=== PATIENT | female | born 1985 | race American Indian/Alaskan Native ===

== ENCOUNTER 2016-07-06 22:41 | Emergency (ER) | payer OTHER ==
[2016-07-06] MEDS ORDERED: Aspirin 81 MG Tab.Chew PO ONE (23:28)
[2016-07-07 00:08] LABS: CHLORIDE,CL 100 mmol/L (101-111); SODIUM,NA 135 mmol/L (135-145)
[2016-07-07] MEDS ORDERED: Ketorolac 30 MG/ML SDV IM ONE (00:33)
[2016-07-07] MEDS ORDERED: Cyclobenzaprine 10 MG Tab PO ONE (00:33)
--- NOTE | 2016-07-07 01:30 | EDM.PDOC ---
ED HISTORY OF PRESENT ILLNESS - General Chief Complaint: Chest Pain Stated Complaint: [id number] CHEST INTO LEFT ARM Time Seen by Provider: 07/06/16 22:55 Source of Information: Reports: Patient History Limitations: Reports: No limitations - History of Present Illness INITIAL COMMENTS - FREE TEXT/NARRATIVE: c/o chest pain, describes as ache, sharp has been present constant x 2 days, seemed to get worse this cece, was out at casino and got nauseated Denied injury No breathing difficutly, - Related Data Allergies/ADRs: Allergies Allergy/AdvReac Type Severity Reaction Status Date / Time No Known Allergies Allergy Verified 07/06/16 22:56 Home Meds: Home Meds Acetaminophen [Tylenol Extra Strength] 1,000 mg PO Q12H PRN 06/07/15 [History] Ibuprofen [Advil] 600 mg PO Q6H PRN 06/07/15 [History] sitaGLIPtin Phos/Metformin HCl [Janumet 50-1,000 MG] 1 each PO BID 07/06/16 [ History] Past Medical History - Past Health History Medical/Surgical History: Denies Medical/Surgical History Respiratory History: Reports: Asthma Endocrine/Metabolic History: Reports: Diabetes, type II Social & Family History - Family History Family Medical History: Noncontributory - Tobacco Use Smoking Status *Q: Current Every Day Smoker Years of Tobacco use: 10 Packs/Tins Daily: 0.5 Used Tobacco, but Quit: No Second Hand Smoke Exposure: Yes - Alcohol Use Days Per Week of Alcohol Use: 0 - Recreational Drug Use Recreational Drug Use: No - Living Situation & Occupation Living situation: Reports: with family Occupation: employed ED ROS GENERAL - Review of Systems Review Of Systems: See Below Constitutional: Reports: no symptoms HEENT: Reports: No symptoms Respiratory: Reports: No Symptoms Cardiovascular: Reports: Chest pain (upper left into shoulder sharp) GI/Abdominal: Reports: No symptoms : Reports: no symptoms Musculoskeletal: Reports: shoulder pain Skin: Reports: no symptoms Neurological: Reports: No Symptoms ED EXAM, GENERAL - Physical Exam Exam: See Below Exam Limited By: No limitations General Appearance: alert, anxious, mild distress Eye Exam: bilateral eye: EOMI Ears: normal external exam Nose: normal inspection Throat/Mouth: Normal inspection Head: atraumatic, normocephalic Neck: normal inspection, supple, non-tender Respiratory/Chest: no respiratory distress, lungs clear, normal breath sounds, other (mild left uppr and lateral tenderness with palpation of chest wall.) Cardiovascular: normal peripheral pulses, regular rate, rhythm GI/Abdominal: normal bowel sounds Back Exam: normal inspection Extremities: other (left shoulder paint tenderness does not reporduce with movement. ) Neurological: alert, oriented Course - Vital Signs Last Recorded V/S: Last Vital Signs Temp 96.3 F 07/07/16 01:45 Pulse 88 07/07/16 01:45 Resp 18 07/07/16 01:45 BP 144/88 H 07/07/16 01:45 Pulse Ox 98 07/07/16 01:45 - Orders/Labs/Meds Labs: Laboratory Tests 07/06/16 07/06/16 07/06/16 Range/Units 23:35 23:35 23:35 WBC 17.1 H (5.0-10.0) 10^3/uL RBC 4.71 (4.2-5.4) 10^6/uL Hgb 13.3 (12.0-16.0) g/dL Hct 39.5 (37.0-47.0) % MCV 83.9 (80-100) fL MCH 28.2 (27.0-34.0) pg MCHC 33.7 (33.0-35.0) g/dL Plt Count 357 (150-450) 10^3/uL Neut % (Auto) 68.8 (42.2-75.2) % Lymph % (Auto) 23.9 (20.5-50.1) % [place] % (Auto) 4.7 (2-8) % Eos % (Auto) 2.5 (1.0-3.0) % Baso % (Auto) 0.1 (0.0-1.0) % D-Dimer, Quantitative (0-400) ng/mL Sodium 135 (135-145) mmol/L Potassium 3.7 (3.6-5.0) mmol/L Chloride 100 L (101-111) mmol/L Carbon Dioxide 24.0 (21.0-31.0) mmol/L Anion Gap 14.7 BUN 16 (7-18) mg/dL Creatinine 0.8 (0.6-1.3) mg/dL Est Cr Clr Drug Dosing 106.48 mL/min Estimated GFR (MDRD) > 60 BUN/Creatinine Ratio 20.00 Glucose 261 H (74-105) mg/dL Calcium 8.6 (8.4-10.2) mg/dl Total Bilirubin 0.1 L (0.2-1.0) mg/dL AST 18 (10-42) IU/L ALT 22 (10-60) IU/L Alkaline Phosphatase 83 (42-121) IU/L CK-MB (CK-2) 0.60 (0.4-4.7) ng/mL Troponin I < 0.02 (0.00-0.02) ng/ml Total Protein 7.5 (6.7-8.2) g/dl Albumin 3.8 (3.2-5.5) g/dl Globulin 3.7 Albumin/Globulin Ratio 1.03 Amylase 36 (28-100) U/L Lipase 32 (22-51) U/L HCG, Qual Negative 07/06/16 Range/Units 23:35 WBC (5.0-10.0) 10^3/uL RBC (4.2-5.4) 10^6/uL Hgb (12.0-16.0) g/dL Hct (37.0-47.0) % MCV (80-100) fL MCH (27.0-34.0) pg MCHC (33.0-35.0) g/dL Plt Count (150-450) 10^3/uL Neut % (Auto) (42.2-75.2) % Lymph % (Auto) (20.5-50.1) % Story % (Auto) (2-8) % Eos % (Auto) (1.0-3.0) % Baso % (Auto) (0.0-1.0) % D-Dimer, Quantitative < 100 (0-400) ng/mL Sodium (135-145) mmol/L Potassium (3.6-5.0) mmol/L Chloride (101-111) mmol/L Carbon Dioxide (21.0-31.0) mmol/L Anion Gap BUN (7-18) mg/dL Creatinine (0.6-1.3) mg/dL Est Cr Clr Drug Dosing mL/min Estimated GFR (MDRD) BUN/Creatinine Ratio Glucose (74-105) mg/dL Calcium (8.4-10.2) mg/dl Total Bilirubin (0.2-1.0) mg/dL AST (10-42) IU/L ALT (10-60) IU/L Alkaline Phosphatase (42-121) IU/L CK-MB (CK-2) (0.4-4.7) ng/mL Troponin I (0.00-0.02) ng/ml Total Protein (6.7-8.2) g/dl Albumin (3.2-5.5) g/dl Globulin Albumin/Globulin Ratio Amylase (28-100) U/L Lipase (22-51) U/L HCG, Qual Meds: Medications Discontinued Medications Generic Name Dose Route Start Last Admin Trade Name Freq PRN Reason Stop Dose Admin Aspirin 324 mg 07/06/16 23:28 07/06/16 23:42 Aspirin PO 07/06/16 23:29 324 mg ONETIME ONE Administration Cyclobenzaprine HCl 10 mg 07/07/16 00:33 07/07/16 01:23 Flexeril PO 07/07/16 00:34 10 mg ONETIME ONE Administration Ketorolac Tromethamine 30 mg 07/07/16 00:33 07/07/16 01:24 Toradol IM 07/07/16 00:34 30 mg ONETIME ONE Administration - Radiology Interpretation Free Text/Narrative:: CXR negative Departure - Departure Time of Disposition: 01:41 Disposition: Home, Self-Care 01 Condition: good Clinical Impression: Pain of left shoulder region, Atypical chest pain Instructions: Nonspecific Chest Pain, [id number] Referrals: PCP,None [Primary Care Provider] - Forms: ED Department Discharge Additional Instructions: alternate tylenol and ibuprofen for discomfort clinic 2-3 days heat to shoulder and neck area urgent follow up if chset pain accompanied by SOB fever,
[2016-07-07 02:24] VITALS: BP 144/88
--- NOTE | 2016-08-18 12:49 | EKG ---
07/06/2016 - JASWINDER NAZARIO - Twelve-lead EKG shows sinus tachycardia with heart rate of 106. Nonspecific ST- T wave changes noted on lead V4, V5. No significant ST elevation or ST depression noted on this 12-lead EKG. [facility] /[id number]
== END 2016-07-07 01:48 | disposition home or self-care (01) ==
LOC: DL.ED 22:41
DX: M25.512 Pain in left shoulder (principal); R07.89 Other chest pain; R11.0 Nausea; J45.909 Unspecified asthma, uncomplicated; E11.9 Type 2 diabetes mellitus without complications; F17.210 Nicotine dependence, cigarettes, uncomplicated; Z79.899 Other long term (current) drug therapy
CPT/HCPCS: 36415; 71010; 80053; 82150; 82553; 83690; 84484; 84703; 85025; 85379; 96372; 99285; A9270; J1885

== ENCOUNTER 2016-07-17 22:31 | Emergency (ER) | payer OTHER ==
[2016-07-17 22:37] VITALS: BP 151/90
--- NOTE | 2016-07-17 22:44 | EDM.PDOC ---
ED HPI GI/ABDOMINAL - General Chief Complaint: Abdominal Pain Stated Complaint: GALLBLADDER OR APPENDIX Time Seen by Provider: 07/17/16 22:43 Source of Information: Reports: Patient History Limitations: Reports: No limitations - History of Present Illness INITIAL COMMENTS - FREE TEXT/NARRATIVE: c/o nausea without vomiting after eating primerib for lucnh, Similar symptoms prior, has not followed up in clinic as recommended. Location: [facility] Quality: Reports: throbbing - Related Data Allergies/ADRs: Allergies Allergy/AdvReac Type Severity Reaction Status Date / Time No Known Allergies Allergy Verified 07/17/16 22:37 Home Meds: Home Meds Acetaminophen [Tylenol Extra Strength] 1,000 mg PO Q12H PRN 06/07/15 [History] Ibuprofen [Advil] 600 mg PO Q6H PRN 06/07/15 [History] sitaGLIPtin Phos/Metformin HCl [Janumet 50-1,000 MG] 1 each PO BID 07/06/16 [ History] Past Medical History - Past Health History Medical/Surgical History: Denies Medical/Surgical History Respiratory History: Reports: Asthma Endocrine/Metabolic History: Reports: Diabetes, type II Social & Family History - Family History Family Medical History: Noncontributory - Tobacco Use Smoking Status *Q: Current Every Day Smoker Years of Tobacco use: 15 Packs/Tins Daily: 0.5 Used Tobacco, but Quit: No Second Hand Smoke Exposure: Yes - Alcohol Use Days Per Week of Alcohol Use: 0 - Recreational Drug Use Recreational Drug Use: No - Living Situation & Occupation Living situation: Reports: with family Occupation: employed ED ROS GENERAL - Review of Systems Review Of Systems: See Below Constitutional: Denies: fever Respiratory: Reports: No Symptoms Cardiovascular: Reports: No symptoms GI/Abdominal: Reports: Abdominal pain, Decreased appetite, Nausea. Denies: Constipation, Diarrhea, Distension, Vomiting : Reports: other (LMP 06/24) Musculoskeletal: Reports: no symptoms Skin: Reports: no symptoms Neurological: Reports: No Symptoms ED EXAM, GI/ABD - Physical Exam Exam: See Below Exam Limited By: No limitations General Appearance: alert, mild distress Eyes: bilateral: normal appearance Ears: normal external exam Throat/Mouth: Normal inspection Head: atraumatic, normocephalic Neck: normal inspection Respiratory/Chest: no respiratory distress, lungs clear, normal breath sounds Cardiovascular: normal peripheral pulses, regular rate, rhythm GI/Abdominal: soft, hyperactive bowel sounds, tenderness, McBurney's sign. No: distention Back Exam: normal inspection Extremities: normal inspection Neurological: alert, oriented Skin Exam: Warm, Dry, Intact, Normal color Course - Vital Signs Last Recorded V/S: Last Vital Signs Temp 98.6 F 07/17/16 22:33 Pulse 133 H 07/17/16 22:33 Resp 18 07/17/16 22:33 BP 151/90 H 07/17/16 22:33 Pulse Ox 100 07/17/16 22:33 - Orders/Labs/Meds Labs: Laboratory Tests 07/17/16 07/17/16 Range/Units 22:55 22:55 WBC 18.9 H (5.0-10.0) 10^3/uL RBC 4.99 (4.2-5.4) 10^6/uL Hgb 14.1 (12.0-16.0) g/dL Hct 41.5 (37.0-47.0) % MCV 83.2 (80-100) fL MCH 28.3 (27.0-34.0) pg MCHC 34.0 (33.0-35.0) g/dL Plt Count 325 (150-450) 10^3/uL Neut % (Auto) 84.2 H (42.2-75.2) % Lymph % (Auto) 8.1 L (20.5-50.1) % [place] % (Auto) 5.1 (2-8) % Eos % (Auto) 2.5 (1.0-3.0) % Baso % (Auto) 0.1 (0.0-1.0) % Sodium 134 L (135-145) mmol/L Potassium 3.9 (3.6-5.0) mmol/L Chloride 101 (101-111) mmol/L Carbon Dioxide 23.0 (21.0-31.0) mmol/L Anion Gap 13.9 BUN 14 (7-18) mg/dL Creatinine 0.6 (0.6-1.3) mg/dL Est Cr Clr Drug Dosing 141.98 mL/min Estimated GFR (MDRD) > 60 BUN/Creatinine Ratio 23.33 Glucose 178 H (74-105) mg/dL Calcium 8.6 (8.4-10.2) mg/dl Total Bilirubin 0.7 (0.2-1.0) mg/dL AST 20 (10-42) IU/L ALT 25 (10-60) IU/L Alkaline Phosphatase 70 (42-121) IU/L Total Protein 7.7 (6.7-8.2) g/dl Albumin 3.9 (3.2-5.5) g/dl Globulin 3.8 Albumin/Globulin Ratio 1.03 Amylase 21 L (28-100) U/L Lipase 26 (22-51) U/L HCG, Qual Negative Meds: Medications Discontinued Medications Generic Name Dose Route Start Last Admin Trade Name Freq PRN Reason Stop Dose Admin Hydrocodone Bitart/Acetaminophen Confirm 07/18/16 00:50 07/18/16 01:03 [place] 325-10 Mg Administered 07/18/16 00:51 Not Given Dose 2 tab .ROUTE .STK-MED ONE Sodium Chloride 1,000 mls @ 999 mls/hr 07/17/16 23:30 07/18/16 00:02 Normal Saline IV 07/18/16 00:30 999 mls/hr .BOLUS ONE Administration Iopamidol 100 ml 07/17/16 23:29 07/17/16 23:45 Isovue-300 (61%) IVPUSH 07/17/16 23:30 100 ml ONETIME ONE Administration Ondansetron HCl Confirm 07/18/16 00:51 07/18/16 01:03 Zofran Odt Administered 07/18/16 00:52 Not Given Dose 8 mg .ROUTE .STK-MED ONE Departure - Departure Time of Disposition: 00:45 Disposition: Home, Self-Care 01 Condition: good Clinical Impression: Cholecystitis Instructions: Cholecystitis, [id number] Referrals: PCP,None [Primary Care Provider] - Forms: ED Department Discharge Additional Instructions: push fluids follow up in clinic for gall bladder ultrasound or hyda scan low fat bland diet hold metformin for 48 hours monitor blood sugars
[2016-07-17 23:20] LABS: CHLORIDE,CL 101 mmol/L (101-111); SODIUM,NA 134 mmol/L (135-145)
[2016-07-17] MEDS ORDERED: Iopamidol 612 MG/ML 100 ML Bottle IVPUSH ONE (23:29)
[2016-07-17] MEDS ORDERED: Sodium Chloride 0.9% 1,000 ML IV ONE (23:30)
[2016-07-18] MEDS ORDERED: Acetaminophen/HYDROcodone 325-10 MG Tab ONE (00:50)
[2016-07-18] MEDS ORDERED: Ondansetron 4 MG Tab.DIS ONE (00:51)
[2016-07-18] MEDS ORDERED: Acetaminophen/HYDROcodone 325-10 MG Tab PO ONE (00:51)
[2016-07-18] MEDS ORDERED: Ondansetron 4 MG Tab.DIS PO ONE (00:51)
--- NOTE | 2016-07-18 11:21 | EKG ---
07/17/2016 - JASWINDER NAZARIO BANDAR - TIME: 2234 hours. EKG shows sinus tachycardia with a rate of 122 per minute. [facility] /[id number]
== END 2016-07-18 01:03 | disposition home or self-care (01) ==
LOC: DL.ED 22:31
DX: K81.9 Cholecystitis, unspecified (principal); J45.909 Unspecified asthma, uncomplicated; E11.9 Type 2 diabetes mellitus without complications; F17.210 Nicotine dependence, cigarettes, uncomplicated; Z79.899 Other long term (current) drug therapy
CPT/HCPCS: 36415; 71010; 74177; 80053; 82150; 83690; 84703; 85025; 96360; 99285; J7030; Q9967; A9270-GY

== ENCOUNTER 2017-01-14 18:58 | Emergency (ER) | payer OTHER ==
[2017-01-14 19:24] VITALS: BP 141/77
== END 2017-01-14 22:05 | disposition left against medical advice (07) ==
LOC: DL.ED 18:58
DX: Z53.21 Procedure and treatment not carried out due to patient leaving prior to being seen by health care provider (principal)

== ENCOUNTER 2017-01-19 21:42 | Emergency (ER) | payer OTHER | END 2017-01-19 22:39 | disposition left against medical advice (07) | LOC: DL.ED 21:42 | DX: Z53.21 Procedure and treatment not carried out due to patient leaving prior to being seen by health care provider (principal) ==

== ENCOUNTER 2019-09-27 00:15 | Emergency (ER) | payer BC, OTHER ==
[2019-09-27 00:34] VITALS: PULSE 106
[2019-09-27] MEDS ORDERED: Lidocaine 1% 30 ML SDV INJECT ONE (00:41)
--- NOTE | 2019-09-27 00:49 | EDM.PDOC ---
ED HPI GENERAL MEDICAL PROBLEM - General Chief Complaint: Skin Complaint Stated Complaint: POST CSECTION, INFECTED Time Seen by Provider: 09/27/19 00:45 Source of Information: Reports: Patient, RN, RN Notes Reviewed History Limitations: Reports: No Limitations - History of Present Illness INITIAL COMMENTS - FREE TEXT/NARRATIVE: Patient presents to ER with complaint of infection on her abdomen. 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 This was 17 years ago. Patient states she feels like she has a fever, but is unsure if she has had wound present. Patient states she has been put on antibiotic's numerous times in the area clears up, but it returns. Patient states the area has only been opened up and drained once in the past about 10 years ago. Patient states she does have pain and achiness in the lower abdomen hips, and back. Onset: Gradual Treatments [employer]PRESENT[employer]IVE: Reports: NSAIDS Lower Abdominal Pain Score (Numeric/FACES): 7 - Related Data Allergies Allergy/AdvReac Type Severity Reaction Status Date / Time No Known Allergies Allergy Verified 09/27/19 00:19 Home Meds: Home Meds Acetaminophen [Tylenol Extra Strength] 1,000 mg PO Q12H PRN 06/07/15 [History] Ibuprofen [Advil] 600 mg PO Q6H PRN 06/07/15 [History] Pioglitazone [Actos] 1 tab PO DAILY 09/27/19 [History] lisinopriL [Lisinopril] 10 mg PO DAILY 09/27/19 [History] metFORMIN HCl [Metformin HCl] 1 tab PO BID 09/27/19 [History] Past Medical History - Past Health History Medical/Surgical History: Denies Medical/Surgical History Respiratory History: Reports: Asthma Endocrine/Metabolic History: Reports: Diabetes, Type II Social & Family History - Family History Family Medical History: Noncontributory - Caffeine Use Caffeine Use: Reports: Soda - Living Situation & Occupation Living situation: Reports: with Family Occupation: Employed ED ROS GENERAL - Review of Systems Review Of Systems: Comprehensive ROS is negative, except as noted in HPI. ED EXAM, SKIN/RASH Exam: See Below Exam Limited By: No Limitations General Appearance: Alert, WD/WN, No Apparent Distress Eye Exam: Bilateral Eye: EOMI, Normal Inspection Ears: Normal External Exam, Hearing Grossly Normal Nose: Normal Inspection Throat/Mouth: Normal Inspection, Normal Voice, No Airway Compromise Head: Atraumatic, Normocephalic Neck: Normal Inspection, Supple, Non-Tender, Full Range of Motion Respiratory/Chest: No Respiratory Distress, Lungs Clear, Normal Breath Sounds, No Accessory Muscle Use, Chest Non-Tender Cardiovascular: Normal Peripheral Pulses, Regular Rate, Rhythm, No Edema, No Gallop, No JVD, No Murmur, No Rub GI/Abdominal: Normal Bowel Sounds, Soft, No Organomegaly, No Distention, No Abnormal Bruit, No Mass, Pelvis Stable, Tender (Female) Exam: Deferred Rectal (Female) Exam: Deferred Back Exam: Normal Inspection, Full Range of Motion, NT Extremities: Normal Inspection, Normal Range of Motion, Non-Tender, No Pedal Edema, Normal Capillary Refill Neurological: Alert, Oriented, CN II-XII Intact, Normal Cognition, Normal Gait, Normal Reflexes, No Motor/Sensory Deficits Psychiatric: Normal Affect, Normal Mood Skin: Warm, Dry, Erythema, Other ([id number] abscess to the lower abdomen(pannus) midline below the navel, surrounding cellulitis) Location, Skin: Abdomen Associated features: Warmth, Tenderness, Induration, Inflammation Lymphatic: No Adenopathy ED SKIN PROCEDURES - I&D Site: lower abdomen, midline below navel Skin Prep: Chlorhexidine (Hibiciens) Local Anesthesia: Lidocaine: 1% Plain Local Anesthetic Volume: 5cc Area Incised With: 11 Blade Drainage: Purulent, Bloody, Large Amount, Other (Foul smelling) Probed to Break Up Loculations: Yes Packed With: None Sterile Dressing: None (Telfa) Complications: No Course - Vital Signs Last Recorded V/S: Last Vital Signs Temp 97.8 F 09/27/19 00:27 Pulse 106 H 09/27/19 00:27 Resp 18 09/27/19 00:27 BP Pulse Ox 100 09/27/19 00:27 - Orders/Labs/Meds Orders: Active Orders 24 hr Category Date Time Status CULTURE WOUND [RM] Urgent Lab 09/27/19 00:41 Ordered Labs: Laboratory Tests 09/27/19 09/27/19 09/27/19 Range/Units 00:50 00:50 00:50 WBC 15.9 H (5.0-10.0) 10^3/uL RBC 4.41 (4.2-5.4) 10^6/uL Hgb 12.1 D (12.0-16.0) g/dL Hct 36.9 L (37.0-47.0) % MCV 83.7 (80-100) fL MCH 27.4 (27.0-34.0) pg MCHC 32.8 L (33.0-35.0) g/dL Plt Count 366 (150-450) 10^3/uL Neut % (Auto) 66.4 (42.2-75.2) % Lymph % (Auto) 21.9 (20.5-50.1) % [place] % (Auto) 8.0 (2-8) % Eos % (Auto) 3.6 H (1.0-3.0) % Baso % (Auto) 0.1 (0.0-1.0) % Sodium 141 (136-145) mmol/L Potassium 3.9 (3.5-5.1) mmol/L Chloride 103 (98-107) mmol/L Carbon Dioxide 25 (21-32) mmol/L Anion Gap 16.9 H (7-13) mEq/L BUN 15 (7-18) mg/dL Creatinine 0.92 (0.55-1.02) mg/dL Est Cr Clr Drug Dosing 92.29 mL/min Estimated GFR (MDRD) > 60 BUN/Creatinine Ratio 16.3 (No establ ref range) Glucose 123 H (74-99) mg/dL Lactic Acid 1.0 (0.4-2.0) mmol/L Calcium 8.6 (8.5-10.1) mg/dL Total Bilirubin 0.4 (0.2-1.0) mg/dL AST 9 L (15-37) U/L ALT 19 (14-59) U/L Alkaline Phosphatase 74 (46-116) U/L Total Protein 7.6 (6.4-8.2) g/dL Albumin 3.5 (3.4-5.0) g/dL Globulin 4.1 Albumin/Globulin Ratio 0.9 Meds: Medications Discontinued Medications Generic Name Dose Route Start Last Admin Trade Name Freq PRN Reason Stop Dose Admin Clindamycin Phosphate 600 mg/ 104 mls @ 200 mls/hr 09/27/19 00:53 09/27/19 01 :05 Sodium Chloride IV 09/27/19 01:24 200 mls/hr ONETIME ONE Administration Lidocaine HCl 30 ml 09/27/19 00:41 09/27/19 01:03 Xylocaine-Mpf 1% INJECT 09/27/19 00:42 30 ml ONETIME ONE Administration Departure - Departure Time of Disposition: 01:46 Disposition: Home, Self-Care 01 Condition: Fair Clinical Impression: Abscess Cellulitis Qualifiers: Site of cellulitis: trunk Site of cellulitis of trunk: abdominal wall Qualified Code(s): L03.311 - Cellulitis of abdominal wall - Discharge Information *PRESCRIPTION DRUG MONITORING PROGRAM REVIEWED*: No *COPY OF PRESCRIPTION DRUG MONITORING REPORT IN PATIENT [place]: No Instructions: Skin Abscess, Kygy-[id number], Cellulitis, Adult, [id number] Forms: ED Department Discharge Additional Instructions: Keep area covered until drainage stops RX: Clindamycin Follow up with your primary care facility Sepsis Event Note - Evaluation Sepsis Screening Result: No Definite Risk - Focused Exam Vital Signs: Vital Signs Temp Pulse Resp Pulse Ox 09/27/19 00:27 97.8 F 106 H 18 100 Date Exam was Performed: 09/27/19 Time Exam was Performed: 01:46 - My Orders Last 24 Hours: My Active Orders 09/27/19 00:41 CULTURE WOUND [RM] Urgent - Assessment/Plan Last 24 Hours: My Active Orders 09/27/19 00:41 CULTURE WOUND [RM] Urgent
[2019-09-27] MEDS ORDERED: Clindamycin Phosphate 600 MG in Sodium Chloride 0.9% 100 ML IV ONE (00:53)
[2019-09-27 01:16] LABS: ANION GAP 16.9 mEq/L (7-13); CHLORIDE,CL 103 mmol/L (98-107); SODIUM,NA 141 mmol/L (136-145)
== END 2019-09-27 01:50 | disposition home or self-care (01) ==
LOC: DL.ED 00:15
DX: L02.211 Cutaneous abscess of abdominal wall (principal); L03.311 Cellulitis of abdominal wall; E11.9 Type 2 diabetes mellitus without complications; Z79.84 Long term (current) use of oral hypoglycemic drugs; Z79.899 Other long term (current) drug therapy
CPT/HCPCS: 10060; 36415; 80053; 83605; 85025; 87070; 96365; 99283; J2001; J3490; J7050

== ENCOUNTER 2020-08-12 10:17 | Emergency (ER) | payer BC ==
[2020-08-12 10:32] VITALS: BP 130/75; PULSE 66
--- NOTE | 2020-08-12 10:51 | EDM.PDOC ---
<Nando An - Last Filed: 08/12/20 11:53> ED HPI GENERAL MEDICAL PROBLEM - General Chief Complaint: Respiratory Problem Stated Complaint: SHORTNESS OF BREATH SORE THROAT Time Seen by Provider: 08/12/20 10:43 Source of Information: Reports: Patient History Limitations: Reports: No Limitations - History of Present Illness INITIAL COMMENTS - FREE TEXT/NARRATIVE: Vidya is a 34 year old female presenting to the ER with shortness of breath, cough and sore throat since Thursday. Symptoms were gradual in onset, they have worsened since onset. She did have associated warm feeling on Thursday but she did not take her temperature. She has not tried any over the counter medication for her symptoms. She has been using a humidifier which has not helped much. She has been taking all of her medications as prescribed. 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 Onset: Gradual Onset Date: 08/03/20 Flank Pain Score (Numeric/FACES): 4 - Related Data Allergies Allergy/AdvReac Type Severity Reaction Status Date / Time No Known Allergies Allergy Verified 08/12/20 10:33 Home Meds: Home Meds Acetaminophen [Tylenol Extra Strength] 1,000 mg PO Q12H PRN 06/07/15 [History] Ibuprofen [Advil] 600 mg PO Q6H PRN 06/07/15 [History] Pioglitazone [Actos] 1 tab PO DAILY 09/27/19 [History] lisinopriL [Lisinopril] 10 mg PO DAILY 09/27/19 [History] metFORMIN HCl [Metformin HCl] 1 tab PO BID 09/27/19 [History] Aspirin [Aspirin EC] 81 mg PO DAILY 08/12/20 [History] Past Medical History - Past Health History Medical/Surgical History: Denies Medical/Surgical History HEENT History: Reports: Impaired Vision Other HEENT History: wears glasses Cardiovascular History: Reports: Hypertension Respiratory History: Reports: Asthma Gastrointestinal History: Reports: None 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: Musculoskeletal History: Reports: None Neurological History: Reports: None Psychiatric History: Reports: None Endocrine/Metabolic History: Reports: Diabetes, Type II, Obesity/BMI 30+ Hematologic History: Reports: None Immunologic History: Reports: None Oncologic (Cancer) History: Reports: None Dermatologic History: Reports: None - Infectious Disease History Infectious Disease History: Reports: Chicken Pox - Past Surgical History Head Surgeries/Procedures: Reports: None GI Surgical History: Reports: Cholecystectomy Female Surgical History: Reports: Section Social & Family History - Family History Family Medical History: No Pertinent Family History - Tobacco Use Tobacco Use Status *Q: Current Every Day Tobacco User Years of Tobacco use: 10 Packs/Tins Daily: 0.5 Second Hand Smoke Exposure: No - Caffeine Use Caffeine Use: Reports: Soda - Recreational Drug Use Recreational Drug Use: No - Living Situation & Occupation Living situation: Reports: with Family Occupation: Employed ED ROS GENERAL - Review of Systems Review Of Systems: Comprehensive ROS is negative, except as noted in HPI. ED EXAM, GENERAL - Physical Exam Exam: See Below Exam Limited By: No Limitations General Appearance: Alert, No Apparent Distress Eye Exam: Bilateral Eye: EOMI, PERRL Ears: Normal External Exam Throat/Mouth: Normal Inspection, Normal Oropharynx Head: Atraumatic Neck: Normal Inspection Respiratory/Chest: No Respiratory Distress, Lungs Clear, Normal Breath Sounds, No Accessory Muscle Use Cardiovascular: Regular Rate, Rhythm, No Murmur GI/Abdominal: Soft, Non-Tender Extremities: No Pedal Edema Neurological: Alert, Oriented Departure - Departure Time of Disposition: 11:53 Disposition: Home, Self-Care 01 Condition: Good Clinical Impression: Viral URI - Discharge Information *PRESCRIPTION DRUG MONITORING PROGRAM REVIEWED*: Not Applicable *COPY OF PRESCRIPTION DRUG MONITORING REPORT IN PATIENT [place]: Not Applicable Instructions: Viral Respiratory Infection, [id number] Additional Instructions: Advised patient she likely has a viral URI, recommended over the counter medication to help with symptom relief, discussed disease course and signs and symptoms that would prompt follow-up. Sepsis Event Note (ED) - Evaluation Sepsis Screening Result: No Definite Risk <Eliot Lakhani - Last Filed: 08/12/20 11:58> Course - Vital Signs Last Recorded V/S: Last Vital Signs Temp 35.9 C L 08/12/20 10:25 Pulse 66 08/12/20 10:25 Resp 16 08/12/20 10:25 BP 130/75 08/12/20 10:25 Pulse Ox 99 08/12/20 10:25 - Orders/Labs/Meds Labs: Laboratory Tests 08/12/20 08/12/20 08/12/20 Range/Units 10:56 11:06 11:06 WBC 9.8 (5.0-10.0) 10^3/uL RBC 4.31 (4.2-5.4) 10^6/uL Hgb 11.9 L (12.0-16.0) g/dL Hct 37.3 (37.0-47.0) % MCV 86.5 (80-100) fL MCH 27.6 (27.0-34.0) pg MCHC 31.9 L (33.0-35.0) g/dL Plt Count 331 (150-450) 10^3/uL Neut % (Auto) 66.4 (42.2-75.2) % Lymph % (Auto) 19.3 L (20.5-50.1) % Sac % (Auto) 7.6 (2-8) % Eos % (Auto) 6.6 H (1.0-3.0) % Baso % (Auto) 0.1 (0.0-1.0) % Sodium 139 (136-145) mmol/L Potassium 3.9 (3.5-5.1) mmol/L Chloride 104 (98-107) mmol/L Carbon Dioxide 25 (21-32) mmol/L Anion Gap 13.9 H (7-13) mEq/L BUN 8 (7-18) mg/dL Creatinine 0.64 (0.55-1.02) mg/dL Est Cr Clr Drug Dosing 132.67 mL/min Estimated GFR (MDRD) > 60 BUN/Creatinine Ratio 12.5 (No establ ref range) Glucose 121 H (70-99) mg/dL Calcium 7.9 L (8.5-10.1) mg/dL Total Bilirubin 0.4 (0.2-1.0) mg/dL AST 8 L (15-37) U/L ALT 21 (14-59) U/L Alkaline Phosphatase 71 (46-116) U/L Total Protein 7.0 (6.4-8.2) g/dL Albumin 3.1 L (3.4-5.0) g/dL Globulin 3.9 Albumin/Globulin Ratio 0.79 Influenza Type A RNA Negative (NEGATIVE) Influenza Type B RNA Negative (NEGATIVE) SARS-CoV-2 RNA (ISSAC) Negative (NEGATIVE) - Re-Assessments/Exams Free Text/Narrative Re-Assessment/Exam: 04/18/21 11:58 I have examined the patient. I have discussed findings and treatment plan with the Dr. An. I agree with the assessment and plan in the following residents note. Sepsis Event Note (ED) - Focused Exam Vital Signs: Vital Signs Temp Pulse Resp BP Pulse Ox 08/12/20 10:25 35.9 C L 66 16 130/75 99
[2020-08-12 11:31] LABS: ANION GAP 13.9 mEq/L (7-13); CHLORIDE,CL 104 mmol/L (98-107); SODIUM,NA 139 mmol/L (136-145)
[2020-08-12 11:48] LABS: CORONAVIRUS COVID-19 NAA NEGATIVE (NEGATIVE)
== END 2020-08-12 11:53 | disposition home or self-care (01) ==
LOC: DL.ED 10:17
DX: J06.9 Acute upper respiratory infection, unspecified (principal); J45.909 Unspecified asthma, uncomplicated; I10 Essential (primary) hypertension; E11.9 Type 2 diabetes mellitus without complications; E66.9 Obesity, unspecified; Z79.82 Long term (current) use of aspirin; Z79.84 Long term (current) use of oral hypoglycemic drugs; Z72.0 Tobacco use; Z68.41 Body mass index [BMI] 40.0-44.9, adult; Z20.822 Contact with and (suspected) exposure to COVID-19
CPT/HCPCS: 0240U; 36415; 80053; 85025; 99282; 99283

== ENCOUNTER 2022-12-20 22:09 | Emergency (ER) | payer OTHER ==
[2022-12-20] MEDS ORDERED: Sodium Chloride 0.9% 10 ML Syringe FLUSH PRN (22:37)
[2022-12-20] MEDS ORDERED: Iopamidol 612 MG/ML 100 ML Bottle IVPUSH ONE (22:38)
[2022-12-20 22:59] LABS: BASOPHILS PERCENT AUTO 0.2 % (0.0-1.0); EOSINOPHILS PERCENT AUTO 2.5 % (1.0-3.0); HEMATOCRIT 41.7 % (37.0-47.0); HEMOGLOBIN 13.6 g/dL (12.0-16.0); LYMPHOCYTES PERCENT AUTO 23.5 % (20.5-50.1); MEAN CORPUSCULAR HEMOGLOBIN 28.1 pg (27.0-34.0); MEAN CORPUSCULAR HGB CONC 32.6 g/dL (33.0-35.0); MEAN CORPUSCULAR VOLUME 86.2 fL (80-100); MONOCYTES PERCENT AUTO 7.5 % (2-8); NEUTROPHILS PERCENT AUTO 66.3 % (42.2-75.2); PLATELET COUNT,PLT 320 10^3/uL (150-450); RED BLOOD CELL COUNT 4.84 10^6/uL (4.2-5.4); WHITE BLOOD CELL COUNT,WBC 13.1 10^3/uL (5.0-10.0)
[2022-12-20 23:17] LABS: ALBUMIN 3.9 g/dL (3.4-5.0); BILIRUBIN TOTAL 0.3 mg/dL (0.2-1.0); BUN/CREATININE RATIO 17.5 (No establ ref range); C-REACTIVE PROTEIN 0.7 mg/dL (0.0-0.9); CALCIUM 9.2 mg/dL (8.5-10.1); CREATININE 0.63 mg/dL (0.55-1.02); EST CRCL DRUG DOSING (CG) 126.53 mL/min; PROTEIN TOTAL,TP 7.9 g/dL (6.4-8.2)
[2022-12-21 00:18] LABS: T4 FREE 1.13 ng/dL (0.76-1.46); TSH ULTRASENSITIVE 3.29 uIU/mL (0.36-3.74)
[2022-12-21 02:09] VITALS: BP 123/78; PULSE 77
== END 2022-12-21 02:06 | disposition home or self-care (01) ==
LOC: DL.ED 22:09
DX: E04.1 Nontoxic single thyroid nodule (principal); I10 Essential (primary) hypertension; E11.9 Type 2 diabetes mellitus without complications; F17.210 Nicotine dependence, cigarettes, uncomplicated; E66.9 Obesity, unspecified; Z68.34 Body mass index [BMI] 34.0-34.9, adult; Z86.16 Personal history of COVID-19
CPT/HCPCS: 36415; 70491; 80053; 84439; 84443; 85025; 86140; 99283; 99284; J3490; Q9967